=== PATIENT | female | born 1950 | race American Indian/Alaskan Native ===

== ENCOUNTER 2018-05-10 08:31 | Day surgery (SDC) | payer MEDICARE, OTHER ==
[2018-05-10] MEDS ORDERED: ECOTRIN PO ONE (09:32)
[2018-05-10] MEDS: NACL 0.9% 500 ML 500 ML IV SCH ×2 (10:15→11:15)
[2018-05-10] MEDS ORDERED: HEPARIN/NS 5000 UNIT/500ML(CATH LAB) 1,000 ML IR ONE (10:58)
[2018-05-10] MEDS ORDERED: HEPARIN 10,000 UNITS/10 ML ONE (10:58)
[2018-05-10] MEDS ORDERED: SUBLIMAZE ONE (10:58)
[2018-05-10] MEDS ORDERED: VERSED ONE (10:58)
[2018-05-10] MEDS ORDERED: CALAN ONE (10:59)
[2018-05-10] MEDS ORDERED: XYLOCAINE 2% INFILTRATI ONE (10:59)
--- NOTE | 2018-05-10 11:54 | Cardiac Catherization Report ---
CARDIAC CATHETERIZATION INDICATION FOR PROCEDURE: A 67-year-old -[place] female with history of hypertension, diabetes mellitus, hyperlipidemia who was having chest pain and shortness of breath. She has underwent IV Lexiscan nuclear imaging, which showed evidence of mild myocardial ischemia involving the anterior and anteroseptal segments. Because of her symptoms and abnormal stress nuclear imaging, the patient is scheduled for cardiac catheterization for definitive diagnosis and treatment. The patient is aware of the procedure, potential complications and alternatives of therapy available. DESCRIPTION OF PROCEDURE: The patient was brought to the catheterization laboratory in a fasting condition. The patient was evaluated for moderate sedation and was felt to be appropriate candidate for moderate sedation and same. After evaluation, she was given IV Versed and fentanyl for sedation. Subsequently, she was monitored continuously with pulse oximetry, EKG monitoring and hemodynamic monitoring. Local anesthesia was given in the right wrist area after preparing the site with chlorhexidine solution. Right radial artery puncture was made using 21-gauge arterial puncture needle. Subsequently, 5-Cypriot slender sheath was introduced. The patient received 3000 units of intravenous heparin and 5 mg of intra-arterial verapamil. Using 5-Cypriot multipurpose catheter, left ventriculogram was performed in CARUSO projection using hand injection. Subsequently, this catheter was exchanged with a 5-Cypriot TIG catheter for obtaining the angiograms of left and right coronary arteries in multiple views. At the end of the procedure, catheter and sheath were removed. Good hemostasis was achieved with radial band application. The patient tolerated the procedure well. The patient tolerated the sedation well. At the end of the procedure, the patient is communicating well, moving all the extremities and breathing normally. The patient's IV sedation start at 11:18 a.m. Sunday and ended at 11:35 a.m. No untoward complications were noted. The patient was transferred to the room in stable condition. Following findings were noted. HEMODYNAMICS: 1. Opening aortic pressure 134/58, left ventricular pressure 124/22. No gradient across the aortic valve. Estimated ejection fraction around 50%. 2. Left ventriculogram done in CARUSO projection shows mild hypokinesis of the distal part of the anterior wall. Rest of the ventricle moving well. Overall, ejection fraction is within normal limits. End-diastolic pressure as mentioned above is 22 mmHg. Right coronary artery arises somewhat anteriorly from right coronary cusp and is a dominant vessel, angiographically smooth and normal. Similarly, left coronary artery arises normally from left coronary cusp, left main, LAD, and its multiple branches and circumflex artery and its branch are angiographically smooth and normal. FINAL IMPRESSION: Mild hypokinesis of the distal part of the anterior wall. Otherwise, rest of the ventricle moving well and no significant coronary disease documented at this time. PLAN: At this time is to continue risk factor modification and medical therapy. Findings were explained to the patient in detail. The patient will be monitored for next 3-4 hours and will be discharged home. JOB# [id number] SWEETIE/LOUISE
--- NOTE | 2018-05-10 12:41 | Short Stay Summary ---
Short Stay Documentation Date of service: 05/10/18 - History H&P: obtained from office - Allergies and Medications Current Medications: Allergies No Known Allergies Allergy (Verified 05/10/18 09:32) Home Medications Medication Instructions Recorded Confirmed Last Taken Type Aspirin EC [Aspirin Enteric Coated 81 mg PO DAILY 05/10/18 05/10/18 05/09/18 History TAB] 81mg Chlorhexidine Mouthwash [Peridex] 15 ml PO BID 05/10/18 05/10/18 05/09/18 History 15ml Gabapentin [Neurontin] 300 mg PO BID 05/10/18 05/10/18 05/09/18 History 300mg Insulin Glargine [Lantus VIAL] 20 units SC QHS 05/10/18 05/10/18 05/09/18 History 20units Lispro Insulin [Humalog] 5 units SC TID 05/10/18 05/10/18 05/09/18 History 5 units Metformin HCl 1,000 mg PO BID 05/10/18 05/10/18 05/09/18 History 1000mg Metoprolol [Lopressor TAB] 25 mg PO DAILY 05/10/18 05/10/18 05/09/18 History 25mg Simvastatin 40 mg PO DAILY 05/10/18 05/10/18 05/09/18 History 40mg Active Medications Sodium Chloride (Nacl 0.9% 500 Ml) 500 mls @ 50 mls/hr IV DIRECT JOSE Stop: 05/10/18 19:59 Last Admin: 05/10/18 11:15 Dose: 50 mls/hr Documented by: - Brief post op/procedure progress note Date of procedure: 05/10/18 Pre-op diagnosis: chest pain, abnormal stress test Post-op diagnosis: same Procedure: [facility] - see dictated cath report Anesthesia: local Estimated blood loss: none Condition: stable - Disposition Condition at discharge: Good Disposition: [id number] TO HOME OR SELFCARE - Discharge Diagnoses (1) Normal coronary angiogram Status: Chronic (2) Hypokinesia of left ventricle Status: Chronic Short Stay Discharge Plan Activity: advance as tolerated Wound: open to air, keep clean and dry, per your surgeon's advice Follow up with: SID MCQUEEN MD [Primary Care Provider] - 7 Days Forms: CardCath PCI D/C Instructions
[2018-05-10 13:48] VITALS: BP 134/61
== END 2018-05-10 14:00 | disposition home or self-care (01) ==
LOC: CATHLABREC 08:31
PROVIDERS: ATTEND Internal Medicine
DX: I11.9 Hypertensive heart disease without heart failure (principal); E11.42 Type 2 diabetes mellitus with diabetic polyneuropathy; E11.51 Type 2 diabetes mellitus with diabetic peripheral angiopathy without gangrene; E78.5 Hyperlipidemia, unspecified; M19.90 Unspecified osteoarthritis, unspecified site; Z79.82 Long term (current) use of aspirin; Z79.4 Long term (current) use of insulin; Z79.899 Other long term (current) drug therapy; Z98.891 History of uterine scar from previous surgery; Z87.891 Personal history of nicotine dependence
CPT/HCPCS: 82962; 93005; 93010; 93458; 99156; 99157; C1887; C1894; J1644; J2250; J3010; J7040; Q9967